=== PATIENT | male | born 1980 | race American Indian/Alaskan Native ===

== ENCOUNTER 2017-04-07 18:03 | Emergency (ER) | payer SELFPAY ==
[2017-04-07 18:09] VITALS: BMI 20.3
--- NOTE | 2017-04-07 18:10 | PDOC ---
Rapid Medical Evaluation Time Seen by Provider: 04/07/17 18:07 Medical Evaluation: Allergies Allergy/AdvReac Type Severity Reaction Status Date / Time No Known Allergies Allergy Verified 04/07/17 18:05 04/07/17 18:07 Healthy 36 year old male, 2ppd smoker, sent by Dr. Washington for chest pain, started at 12:30pm at rest. +SOB. + cough, no hemoptysis. No travel, immobility , calf pain. BP 164/85 -EKG -CXR -Cardiac labs -To Main ED for further evaluation
[2017-04-07 18:38] LABS: BASO % 0.4 % (0-2.0); EOS % 0.2 % (0-4.5); HEMATOCRIT 47.6 % (35.4-49); LYMPH % 21.5 % (8-40); MCH 29.2 pg (25.7-33.7); MCHC 33.7 g/dl (32.0-35.9); MEAN CELL VOLUME 86.5 fl (80-96); MEAN PLT VOLUME 9.1 fl (7.5-11.1); MONO % 7.4 % (3.8-10.2); NEUT % 70.5 % (42.8-82.8); PLATELET COUNT 127 K/MM3 (134-434); RDW 13.2 % (11.9-15.9); WHITE BLOOD COUNT 6.2 K/mm3 (4.0-10.0)
[2017-04-07 18:53] LABS: INR 1.12 (0.82-1.09); PROTHROMBIN TIME (PATIENT) 12.7 SEC (9.98-11.88)
[2017-04-07 19:03] LABS: ALBUMIN 4.3 g/dl (3.4-5.0); ANION GAP 7 (8-16); BILIRUBIN,TOTAL 0.7 mg/dL (0.2-1.0); CALCIUM 8.4 mg/dL (8.5-10.1); CHLORIDE 102 mmol/L (98-107); CO2 27 mmol/L (21-32); CREATININE 0.8 mg/dL (0.7-1.3); GLUCOSE,RANDOM 83 mg/dL (74-106); SGOT/AST 27 U/L (15-37); SGPT/ALT 43 U/L (12-78); SODIUM 136 mmol/L (136-145)
[2017-04-07 20:11] LABS: BLOOD UREA NITROGEN 11 mg/dL (7-18)
[2017-04-07 20:13] LABS: ALK PHOS 102 U/L (45-117)
--- NOTE | 2017-04-07 20:28 | PDOC ---
History of Present Illness - General History Source: Patient Exam Limitations: No Limitations <Efrem Chandra - Last Filed: 04/07/17 20:28> <Candice Simeon - Last Filed: 04/08/17 00:56> - General Chief Complaint: Chest Pain Stated Complaint: PCP SENT Time Seen by Provider: 04/07/17 18:07 - History of Present Illness Initial Comments: 04/07/17 20:28 The patient is a 36 year old male, with no significant past medical history, who presents to the emergency department with chest pain onset today. He reports that he was at his PMDs office earlier today who sent him to the ED to rule out an RI with two sets of cardiac enzymes. He also reports that his PMD told him, that if this work up was negative, he would refer him to a natural gas shothole driller to perform an echo. The patient describes his chest pain as ranging from mild to moderate, without radiation or modifying factors. He reports that initially his pain was a 10/10 in severity but currently is a 3/10 in severity. He notes that he received a baby aspirin while at his doctors office. He reports that he currently smokes 2.5 packs a day and has been smoking since a young age due to his family being smokers as well. He recalls as early as 6 years old. Patient's father of lung cancer at 63 years old and his mother of a heart attack at 45 years old. The patient denies shortness of breath, headache and dizziness. Denies nausea, vomit, diarrhea and constipation. Allergies: None Past surgical history: None reported Social history: Cigarette use (2.5 packs daily) (Efrem Chandra) Past History <Efrem Chandra - Last Filed: 04/07/17 20:28> - Past Medical History COPD: No - Immunization History Immunization Up to Date: Yes - Suicide/Smoking/Psychosocial Hx Smoking History: Current every day smoker Number of Cigarettes Smoked Daily: 40 Information on smoking cessation initiated: No <Candice Simeon - Last Filed: 04/08/17 00:56> - Past Medical History Allergies/Adverse Reactions: Allergies Allergy/AdvReac Type Severity Reaction Status Date / Time No Known Allergies Allergy Verified 04/07/17 18:05 Review of Systems - Review of Systems Able to Perform ROS?: Yes <Efrem Chandra - Last Filed: 04/07/17 20:28> <Candice Simeon - Last Filed: 04/08/17 00:56> - Review of Systems Comments:: 04/07/17 20:29 GENERAL/CONSTITUTIONAL: (+) Fever and chills. No weakness. HEAD, EYES, EARS, NOSE AND THROAT: No change in vision. No ear pain or discharge. No sore throat. CARDIOVASCULAR: (+) Chest pain. No shortness of breath RESPIRATORY: No cough, wheezing, or hemoptysis. GASTROINTESTINAL: No nausea, vomiting, diarrhea or constipation. GENITOURINARY: No dysuria, frequency, or change in urination. MUSCULOSKELETAL: No joint or muscle swelling or pain. No neck or back pain. SKIN: No rash NEUROLOGIC: No headache, vertigo, loss of consciousness, or change in strength/ sensation. ENDOCRINE: No increased thirst. No abnormal weight change HEMATOLOGIC/LYMPHATIC: No anemia, easy bleeding, or history of blood clots. ALLERGIC/IMMUNOLOGIC: No hives or skin allergy. (Efrem Chandra) *Physical Exam <Efrem Chandra - Last Filed: 04/07/17 20:28> <Candice Simeon - Last Filed: 04/08/17 00:56> - Vital Signs Last Vital Signs Temp Pulse Resp BP Pulse Ox 97.7 F 76 20 130/70 98 04/07/17 18:05 04/07/17 18:05 04/07/17 18:05 04/07/17 18:05 04/07/17 18:05 - Physical Exam Comments: 04/07/17 20:29 GENERAL: Awake, alert, and fully oriented, in no acute distress HEAD: No signs of trauma, normocephalic, atraumatic EYES: PERRLA, EOMI, sclera anicteric, conjunctiva clear ENT: Auricles normal inspection, hearing grossly normal, nares patent, oropharynx clear without exudates. Moist mucosa NECK: Normal ROM, supple, no lymphadenopathy, JVD, or masses. No bruits. LUNGS: No distress, speaks full sentences, clear to auscultation bilaterally HEART: Regular rate and rhythm, normal S1 and S2, no murmurs, rubs or gallops, peripheral pulses normal and equal bilaterally. ABDOMEN: Soft, nontender, normoactive bowel sounds. No guarding, no rebound. No masses EXTREMITIES : Normal inspection, Normal range of motion, no edema. No clubbing or cyanosis. NEUROLOGICAL: Cranial nerves II through XII grossly intact. Normal speech, normal gait, no focal sensorimotor deficits SKIN: Warm, Dry, normal turgor, no rashes or lesions noted. (Efrem Chandra) ED Treatment Course - LABORATORY CBC & Chemistry Diagram: 04/07/17 18:25 04/07/17 18:25 <Efrem Chandra - Last Filed: 04/07/17 20:28> - LABORATORY CBC & Chemistry Diagram: 04/07/17 18:25 04/07/17 18:25 <Candice Simeon - Last Filed: 04/08/17 00:56> - ADDITIONAL ORDERS Additional order review: Laboratory Results 04/07/17 04/07/17 04/07/17 23:30 18:25 18:25 PT with INR 12.70 H INR 1.12 Sodium 136 Potassium 4.0 Chloride 102 Carbon Dioxide 27 Anion Gap 7 L BUN 11 Creatinine 0.8 Creat Clearance w eGFR > 60 Random Glucose 83 Calcium 8.4 L Total Bilirubin 0.7 AST 27 ALT 43 Alkaline Phosphatase 102 Creatine Kinase 86 102 Troponin I < 0.02 < 0.02 Total Protein 8.0 Albumin 4.3 04/07/17 18:25 RBC 5.50 MCV 86.5 MCHC 33.7 RDW 13.2 MPV 9.1 Neutrophils % 70.5 Lymphocytes % 21.5 Monocytes % 7.4 Eosinophils % 0.2 Basophils % 0.4 *DC/Admit/Observation/Transfer <Efrem Chandra - Last Filed: 04/07/17 20:28> <Candice Simeon - Last Filed: 04/08/17 00:56> Diagnosis at time of Disposition: Chest pain Qualifiers: Chest pain type: precordial pain Qualified Code(s): R07.2 - Precordial pain - Discharge Dispostion Disposition: HOME Condition at time of disposition: Improved - Referrals Referrals: Felix Lewis MD [Primary Care Provider] - - Patient Instructions Printed Discharge Instructions: DI for Chest Pain Additional Instructions: IT IS VERY IMPORTANT THAT YOU FOLLOW UP WITH YOUR DOCTOR THIS WEEK TO HAVE AN ECHO AND STRESS TEST ARRANGED WITH A LEAD CUSTOMER SERVICE REPRESENTATIVE RETURN IMMEDIATELY FOR CHEST PAIN ASSOCIATED WITH NAUSEA,SHORTNESS OF BREATH - Post Discharge Activity - Attestations Scribe Attestion: 04/07/17 20:29 Documentation prepared by Efrem Chandra, acting as medical billing service for Candice Simeon MD (Efrem Chandra)
[2017-04-07 23:52] VITALS: TEMP 97.7
--- NOTE | 2017-04-08 11:28 | EKG ---
Test Reason : Blood Pressure : / mmHG Vent. Rate : 074 BPM Atrial Rate : 074 BPM P-R Int : 134 ms QRS Dur : 098 ms QT Int : 386 ms P-R-T Axes : 069 073 069 degrees QTc Int : 428 ms NORMAL SINUS RHYTHM NORMAL ECG NO PREVIOUS ECGS AVAILABLE Confirmed by JULISSA NAJERA, NETO ([id number]) on 04/08/2017 11:28:04 AM Referred By: Confirmed By:NETO COSTA MD
== END 2017-04-08 01:28 | disposition home or self-care (01) ==
LOC: JER 18:03
DX: R07.2 Precordial pain (principal); F17.210 Nicotine dependence, cigarettes, uncomplicated
CPT/HCPCS: 36415; 71046-TC-FY; 80053; 82550; 84484; 85025; 85610; 93005; 93010; 99283-25